=== PATIENT | female | born 1945 | race Caucasian/White ===

== ENCOUNTER 2018-11-06 10:04 | Day surgery (SDC) | payer OTHER ==
[~2018-11-06] VITALS: Ht 160 cm; Wt 64.3 kg
[2018-11-06] VITALS (12 sets, daily range): BP systolic 91–158; BP diastolic 62–85; PULSE 81–118; RESP 14–25; Ht 160 cm; Wt 64.3 kg
[2018-11-06] MEDS ORDERED: EPINEPHrine 1 MG INJ ONE (10:18)
[2018-11-06] MEDS ORDERED: SODIUM HYALURONATE 14 MG/ML SYG ONE (10:18)
[2018-11-06] MEDS ORDERED: LIDOCAINE 1%/EPI (1:100,000) (MDV) 20 ML ONE (10:18)
[2018-11-06] MEDS ORDERED: TOBRAMYCIN/DEXAMETH 3.5 GM OPH OINT ONE (10:18)
--- NOTE | 2018-11-06 10:22 | HPN ---
Date/Time of Note Date/Time of Note DATE: 11/06/18 TIME: 10:22 Interval H&P Admission Note Pt. seen H&P reviewed: No system changes UDAY BO Nov 06, 2018 10:22
[2018-11-06] MEDS ORDERED: TETRACAINE 0.5% 4 ML OPH LEFT EYE SCH (10:30)
[2018-11-06] MEDS ORDERED: MOXIFLOXACIN 0.5% 3 ML OPH OPER SCH (10:30)
[2018-11-06] MEDS ORDERED: TROPICAMIDE 1% 15 ML OPH OPER SCH (10:30)
[2018-11-06] MEDS ORDERED: LIDOCAINE 4% (MPF) 5 ML INJ OPER ONE (10:30)
[2018-11-06] MEDS ORDERED: ACETAZOLAMIDE 250 MG TAB PO ONE (10:30)
[2018-11-06] MEDS ORDERED: DICLOFENAC 0.1% 2.5 ML OPH OPER SCH (10:30)
[2018-11-06] MEDS ORDERED: PHENYLephrine 10% 5 ML OPH OPER SCH (10:30)
--- NOTE | 2018-11-06 10:53 | PREAC ---
Date/Time of Note Date/Time of Note DATE: 11/06/18 TIME: 10:50 Anesthesia Eval and Record Evaluation Time Pre-Procedure Interview DATE: 11/06/18 TIME: 10:50 Age 72 Sex female NPO: 8 hrs Preoperative diagnosis L eye cataract Planned procedure L cataract extraction w/ IOL Past Medical History Past Medical History: Includes (colitis, arthritis) GI: GERD Surgery & Anesthesia Issues No known issue Meds Anticoagulation: No Beta Jose within 24 hr: No Reason Beta Jose not given: Pt. not on B-Jose No Active Prescriptions or Reported Meds Current Medications Tetracaine HCl (Tetracaine 0.5% Steri-Unit Gayle) 1 drop NOTE LEFT EYE Last administered on 11/06/18at 10:28; Admin Dose 1 DROP; Start 11/06/18 at 10:30 Diclofenac Sodium (Voltaren 0.1%) 1 drop Q5 MIN X 3 OPER Last administered on 11/06/18at 10:28; Admin Dose 1 DROP; Start 11/06/18 at 10:30 Moxifloxacin HCl (Vigamox) 1 drop Q5 MIN X 3 OPER Last administered on 11/06/18at 10:28; Admin Dose 1 DROP; Start 11/06/18 at 10:30 Phenylephrine HCl (Ak-Dilate 10%) 1 drop Q5 MIN X 3 OPER Last administered on 11/06/18at 10:29; Admin Dose 1 DROP; Start 11/06/18 at 10:30 Tropicamide (Mydriacyl 1%) 1 drop Q5 MIN X3 OPER Last administered on 11/06/18at 10:29; Admin Dose 1 DROP; Start 11/06/18 at 10:30 Meds reviewed: Yes Allergies Coded Allergies: No Known Allergy (Unverified , 11/06/18) Allergies Reviewed: Yes Labs/Studies Labs Reviewed: Reviewed by anesthesiologist test: N/A Studies: ECG (SR, low qrs voltage, normal), CXR Pre-procedure Exam Last vitals Vital Signs Date Temp Pulse Resp B/P (MAP) Pulse Ox O2 O2 Flow FiO2 Time Delivery Rate 11/06/18 96.5 81 16 158/73 98 Room Air 10:13 (101) Airway: Adequate mouth opening, Adequate thyromental dist Mallampati: Mallampati II Teeth: Abnormal (multiple broken teeth, edentulous upper) Lung: Normal Heart: Normal ASA Physical Status ASA physical status: 2 Emergency: None Planned Anesthetic General/MAC: MAC Pre-operative Attestations Prior to commencing anesthesia and surgery, the patient was re-evaluated, there was verification of: *The patient's identity *The results of appropriate recent lab work and preoperative vital signs *The above evaluation not changing prior to induction *Anesthetic plan, risk benefits, alternative and complications discussed with patient/family; questions answered; patient/family understands, accepts and wishes to proceed. WM MENDEZ Nov 06, 2018 10:53
[2018-11-06] MEDS ORDERED: OXYCODONE/ACETAMINOPHEN (5/325) TAB PO PRN (11:00)
[2018-11-06] MEDS ORDERED: LABETALOL HCL 20MG INJ IV PRN (11:00)
[2018-11-06] MEDS ORDERED: ACETAMINOPHEN 500 MG TAB PO PRN (11:00)
[2018-11-06] MEDS ORDERED: hydrALAzine 20 MG INJ IV PRN (11:00)
[2018-11-06] MEDS ORDERED: TOBRAMYCIN/DEXAMETH 3.5 GM OPH OINT OPER ONE (11:00)
[2018-11-06] MEDS ORDERED: DIPHENHYDRAMINE 50 MG INJ IV PRN (11:00)
[2018-11-06] MEDS ORDERED: ONDANSETRON 4 MG INJ IV PRN (11:00)
[2018-11-06] MEDS ORDERED: ALBUTEROL 0.083% (NEB) 2.5 MG/3 ML AMP HHN PRN (11:00)
[2018-11-06] MEDS ORDERED: ACETAMINOPHEN 325 MG TAB PO PRN (11:00)
[2018-11-06] MEDS ORDERED: FENTAnyl 50 MCG/ML VIAL IV PRN (11:00)
[2018-11-06] MEDS ORDERED: SODIUM HYALURONATE 14 MG/ML SYG IO ONE (11:05)
[2018-11-06] MEDS ORDERED: FENTAnyl 50 MCG/ML VIAL ONE (11:17)
[2018-11-06] MEDS ORDERED: LIDOCAINE 2% (SDV) 5 ML INJ ONE (11:17)
[2018-11-06] MEDS ORDERED: DESFLURANE 15 MIN ONE (11:17)
[2018-11-06] MEDS ORDERED: ROCURONIUM 50 MG INJ ONE (11:17)
[2018-11-06] MEDS ORDERED: SUCCINYLCHOLINE CHLORIDE 100 MG/5 ML SYG IV ONE (11:17)
[2018-11-06] MEDS ORDERED: ETOMIDATE 20 MG INJ ONE (11:17)
[2018-11-06] MEDS ORDERED: MIDAZOLAM 1 MG/ML 2 ML INJ ONE (11:18)
[2018-11-06] MEDS ORDERED: LABETALOL HCL 20MG INJ ONE (11:26)
[2018-11-06] MEDS ORDERED: ONDANSETRON 4 MG INJ ONE (11:27)
[2018-11-06] MEDS ORDERED: FAMOTIDINE 20 MG INJ ONE (11:50)
[2018-11-06] MEDS ORDERED: SUGAMMADEX SODIUM 200 MG/2 ML VIAL IV ONE (11:50)
[2018-11-06] MEDS ORDERED: PHENYLephrine (100 MCG/ML) 10ML SYG ONE (11:54)
[2018-11-06] MEDS ORDERED: TOBRAMYCIN/DEXAMETH 3.5 GM OPH OINT LEFT EYE ONE (11:57)
--- NOTE | 2018-11-06 12:08 | OPR ---
Date/Time of Note Date/Time of Note DATE: 11/06/18 TIME: 12:01 Operative Report Free Text/Dictation Procedure Date: 11/06/2018 Pre-operative diagnosis: Visually significant cataract, LEFT eye Postoperative diagnosis: Visually significant cataract, left eye Procedure: Phacoemulsification with Intra-ocular lens placement, left eye Surgeon: Uday Bo MD Employment Counselor: none Anesthesia Type: General anesthesia Anesthesiologist: Dr. Dru Lozano Tourniquet Time: NA Estimated blood loss: None Transfusions: none Specimen: None Grafts/Implants: IOL: [id number] +23.00, serial [id number] Tubes/Drains: None Complications: None Pt Condition Post Procedure: stable Disposition: home Findings: opacified lens Indications for procedure: The patient is 72 year-old female with Visually significant cataract, who presented with blurred vision and difficulty reading and driving. There is no past medical history. Past surgical history is significant for ovary removal and hernia repair. The patient is not using any medication. The is no known allergy. There is no hist ory of glaucoma or any other hereditary ophthalmic disease in the family. Review of system is negative except for the blurred vision in the affected eye. VA in the operated eye 20/150, IOP 10 mmHg. Pupils are reactive with no RAPD. Slit lamp exam: cornea is clear, deep anterior chamber, 2+ cortical cataract, 3+ nuclear sclerosis cataract, there is no psudoexfoliation present at the pupillary margin or anterior lens capsule. On funds exam cup/disc ratio is 0.2, macula shows nor-mal foveal reflex, retina is attached. Risk, benefit and alternative to cataract surgery was explained to the patient, who agreed to proceed with the procedure. The informed consent was signed by the patient. Description of procedure: The patient was seen by me along with anesthesia team in the pre op area and the surgical site was marked and confirmed. Anesthetic drops along with dilating drops was instilled in surgical eye in the pre op. The patient was then brought back to the operating room placed in supine position. General anesthesia was performed by anesthesia doctor. The eye was prepped with Betadine 5% and draped in sterile manner for the ophthalmic surgery. An eyelid speculum was was placed to keep the eyelid open. Paracentesis wound was made superiorly and inferiorly though clear cornea near the limbus using 1.2mm side-port blade. The anterior chamber was inflated with viscoelastic (viscoat). A keratom blade was used to make a bi-planar, shelved, clear corneal incision, starting at temporal limbus and then tunnel-ing through clear cornea to enter the anterior chamber. A circular curvilinear continue capsulorrhexis was initiated by cystotom and continued with utrata forceps. The capsular flap then was removed. Hydrodissection and hydrodelineation was per-formed using BSS until the lens was freely rotatable. The lens nucleus was then removed using the phacoemulsification handpiece. The residual cortex was removed with the bimanual irrigation/aspiration handpieces. The capsular bag and anterior chamber were inflated with viscoelastic, and the IOL was inserted into the capsular bag. Using irrigation/Aspiration handpiece on the aspiration mode, Healon was removed from the anterior and posterior chamber. Main wound and paracentesis wound was hydrated by BSS. The speculum was removed. Vigamox drops and Sterile antibiotic/steroid ointment was applied to the eye. A cotton patch and clear shield were placed over the operative eye. The patient was transferred to the recovery room in stable condition. Uday Bo MD [id number] UDAY BO Nov 06, 2018 12:08
--- NOTE | 2018-11-06 12:17 | PAC ---
Date/Time of Note Date/Time of Note DATE: 11/06/18 TIME: 12:15 Post-Anesthesia Notes Post-Anesthesia Note Last documented vital signs Vital Signs Date Temp Pulse Resp B/P (MAP) Pulse Ox O2 O2 Flow FiO2 Time Delivery Rate 11/06/18 96.5 98 81 101 16 18 158/73 98 97 Room 10:13 120 (101) 137 Air RA Activity: WNL Respiratory function: WNL Cardiovascular function: WNL Mental status: Baseline Pain reasonably controlled: Yes Hydration appropriate: Yes Nausea/Vomiting absent: Yes WM MENDEZ Nov 06, 2018 12:17
== END 2018-11-06 16:25 | disposition home or self-care (01) ==
LOC: MERGE 10:04 → SDS 10:04
PROVIDERS: ATTEND Ophthalmology
DX: H26.8 Other specified cataract (principal)
CPT/HCPCS: 66984; J0171; J2250; J2370; J2405; J3010; Z7610; V2632

== ENCOUNTER 2018-12-04 07:24 | Day surgery (SDC) | payer OTHER ==
[2018-12-04] VITALS (14 sets, daily range): BP systolic 111–136; BP diastolic 61–83; PULSE 78–122; RESP 16–28; Ht 157.5 cm; Wt 64.8 kg
[~2018-12-04] VITALS: Ht 157.5 cm; Wt 64.8 kg
[~2018-12-04 07:24] MED LIST: DEXAMETHASONE 4 MG/ML 5 ML INJ ONE; LIDOCAINE 2% (SDV) 5 ML INJ ONE; METOCLOPRAMIDE 10 MG INJ ONE; SEVOFLURANE 15 MIN ONE
[2018-12-04] MEDS ORDERED: TETRACAINE 0.5% 4 ML OPH ONE (07:43)
[2018-12-04] MEDS ORDERED: CARBACHOL 0.01% 1.5 ML OPH INJ ONE (07:43)
[2018-12-04] MEDS ORDERED: EPINEPHrine 1 MG INJ ONE (07:43)
[2018-12-04] MEDS ORDERED: DEXAMETHASONE 4 MG/ML 1 ML INJ ONE (07:43)
[2018-12-04] MEDS ORDERED: MIDAZOLAM 1 MG/ML 2 ML INJ ONE (08:11)
[2018-12-04] MEDS ORDERED: ONDANSETRON 4 MG INJ ONE (08:13)
[2018-12-04] MEDS ORDERED: MOXIFLOXACIN 0.5% 3 ML OPH OPER SCH (08:30)
[2018-12-04] MEDS ORDERED: TROPICAMIDE 1% 15 ML OPH OPER SCH (08:30)
[2018-12-04] MEDS ORDERED: PHENYLephrine 10% 5 ML OPH OPER SCH (08:30)
[2018-12-04] MEDS ORDERED: DICLOFENAC 0.1% 2.5 ML OPH OPER SCH (08:30)
[2018-12-04] MEDS ORDERED: PRED5DRO20 RIGHT EYE (08:36)
[2018-12-04] MEDS ORDERED: DEXA5DRO11 RIGHT EYE (08:36)
[2018-12-04] MEDS ORDERED: KETO5DRO21 OPHTHALMIC (08:36)
[2018-12-04] MEDS ORDERED: CPR3OO3.5 RIGHT EYE (08:39)
[2018-12-04] MEDS ORDERED: PROPOFOL 20 ML ONE (08:51)
--- NOTE | 2018-12-04 08:59 | HPN ---
Date/Time of Note Date/Time of Note DATE: 12/04/18 TIME: 08:58 Interval H&P Admission Note Pt. seen H&P reviewed: Systems changes noted below UDAY BO Dec 04, 2018 08:59
--- NOTE | 2018-12-04 09:19 | PREAC ---
Date/Time of Note Date/Time of Note DATE: 12/04/18 TIME: 09:16 Anesthesia Eval and Record Evaluation Time Pre-Procedure Interview DATE: 12/04/18 TIME: 09:16 Age 72 Sex female NPO: 8 hrs Preoperative diagnosis R eye cataract Planned procedure R eye cataract excision w/ IOL Past Medical History Past Medical History: Includes Pulm: Asthma GI: GERD Psych: Depression, Anxiety, Other (claustrophobia) Surgery & Anesthesia Issues No known issue Meds Anticoagulation: No Beta Jose within 24 hr: No Reason Beta Jose not given: Pt. not on B-Jose Reported Medications Ciprofloxacin Opht* (Ciloxan*) 0.3%-3.5 Opht Oint, 1 APPLIC RIGHT EYE TID PRN for PT Taking SUSPENSION, EA 12/04/18 Prednisolone Acetate* (Pred Forte*) 5 Ml Susp, 1 DROP RIGHT EYE QID, EA 12/04/18 Ketorolac Tromethamine Oph (Ketorolac Tromethamine Oph) 0.5%-5 Ml Opht Drops, 1 DROP OPHTHALMIC Q6 Into R eye 12/04/18 Dexamethasone* Ophth (Dexamethasone* Ophth) 0.1%-5 Ml Drops, 1 DROP RIGHT EYE Q4, EA 12/04/18 Discontinued Reported Medications [None] No Conflict Check 05/11/15 Current Medications Tropicamide (Mydriacyl 1%) 1 drop Q5 MIN X3 OPER Last administered on 12/04/18at 08:27; Admin Dose 1 DROP; Start 12/04/18 at 08:30 Moxifloxacin HCl (Vigamox) 1 drop Q5 MIN X 3 OPER Last administered on at 08:27; Admin Dose 1 DROP; Start 12/04/18 at 08:30 Phenylephrine HCl (Ak-Dilate 10%) 1 drop Q5 MIN X 3 OPER Last administered on 12/04/18at 08:27; Admin Dose 1 DROP; Start 12/04/18 at 08:30 Diclofenac Sodium (Voltaren 0.1%) 1 drop Q5MIN X 3 OPER Last administered on 12/04/18at 08:28; Admin Dose 1 DROP; Start 12/04/18 at 08:30 Meds reviewed: Yes Allergies Coded Allergies: No Known Allergies (Verified Allergy, Unknown, 12/04/18) codeine (Verified Adverse Reaction, Severe, PAIN, 12/04/18) SEVERE NERVE PAIN Allergies Reviewed: Yes Labs/Studies Labs Reviewed: Reviewed by anesthesiologist test: Negative Pre-procedure Exam Last vitals Vital Signs Date Temp Pulse Resp B/P (MAP) Pulse Ox O2 O2 Flow FiO2 Time Delivery Rate 12/04/18 98.5 78 16 136/83 94 Room Air 08:54 (100) Airway: Adequate mouth opening, Adequate thyromental dist Mallampati: Mallampati III Teeth: Abnormal (dentures removed) Lung: Normal Heart: Normal ASA Physical Status ASA physical status: 3 Emergency: None Planned Anesthetic General/MAC: LMA Planned Pain Management Parenteral pain med Pre-operative Attestations Prior to commencing anesthesia and surgery, the patient was re-evaluated, there was verification of: *The patient's identity *The results of appropriate recent lab work and preoperative vital signs *The above evaluation not changing prior to induction *Anesthetic plan, risk benefits, alternative and complications discussed with patient/family; questions answered; patient/family understands, accepts and wishes to proceed. SANDRA CHRISTIANSEN MD Dec 04, 2018 09:19
[2018-12-04] MEDS ORDERED: KETOROLAC 30 MG INJ IV PRN (09:30)
[2018-12-04] MEDS ORDERED: LEVALBUTEROL (NEB) 1.25 MG/0.5 ML AMP HHN PRN (09:30)
[2018-12-04] MEDS ORDERED: MEPERIDINE 25 MG INJ IV PRN (09:30)
[2018-12-04] MEDS ORDERED: ONDANSETRON 4 MG INJ IV PRN (09:30)
[2018-12-04] MEDS ORDERED: MIDAZOLAM 1 MG/ML 2 ML INJ IV PRN (09:30)
[2018-12-04] MEDS ORDERED: LORAZEPAM 2 MG INJ IV PRN (09:30)
[2018-12-04] MEDS ORDERED: HYDROmorphONE 1 MG/5 ML IV SYRINGE IV PRN (09:30)
[2018-12-04] MEDS ORDERED: FENTAnyl 50 MCG/ML VIAL IV PRN ×2 (09:30)
[2018-12-04] MEDS ORDERED: DIPHENHYDRAMINE 50 MG INJ IV PRN (09:30)
--- NOTE | 2018-12-04 10:08 | OPR ---
Date/Time of Note Date/Time of Note DATE: 12/04/18 TIME: 10:01 Operative Report Free Text/Dictation Procedure Date: 12/04/2018 Pre-operative diagnosis: Visually significant cataract, right eye Postoperative diagnosis: Visually significant cataract, right eye Procedure: Phacoemulsification with Intra-ocular lens placement, right eye Surgeon: Uday Bo MD [place]: none Anesthesia Type: General anesthesia Anesthesiologist: Dr. Ellis Tourniquet Time: NA Estimated blood loss: None Transfusions: none Specimen: None Grafts/Implants: IOL: SN60WF, power +23.00, serial [id number] Tubes/Drains: None Complications: None Pt Condition Post Procedure: stable Disposition: home Findings: opacified lens Indications for procedure: The patient is 72 year-old female with Visually significant cataract, who presented with blurred vision and difficulty reading and driving. Past medical history is significant for asthma. Past surgical history is significant for cataract surgery left eye, hernia repair, ovary removal. The patient is using . The is no known allergy. There is no history of glaucoma or any other hereditary ophthalmic disease in the family. Review of sys-tem is negative except for the blurred vision in the affected eye. VA in the operated eye 20/100, IOP 7 mmHg. Pupils are reactive with no RAPD. Slit lamp exam: cornea is clear, deep anterior chamber, 2+ cortical cataract, 2+ nuclear sclerosis cataract, there is no psudoexfoliation present at the pupillary margin or anterior lens capsule. On funds exam cup/disc ratio is 0.2, macula shows normal foveal reflex, retina is attached. Risk, benefit and alternative to cataract surgery was explained to the patient, who agreed to proceed with the procedure. The informed consent was signed by the patient. Description of procedure: The patient was seen by me along with anesthesia team in the pre op area and the surgical site was marked and confirmed. Anesthetic drops along with dilating drops was instilled in surgical eye in the pre op. The patient was then brought back to the operating room placed in supine position. General anesthesia was performed by anesthesia team. The eye was prepped with Betadine 5% and draped in sterile manner for the ophthalmic surgery. An eyelid speculum was was placed to keep the eyelid open. Paracentesis wound was made superiorly and inferiorly though clear cornea near the limbus using 1.2mm side-port blade. The anterior chamber was inflated with viscoelastic (viscoat). A keratom blade was used to make a bi-planar, shelved, clear corneal incision, starting at temporal limbus and then tunnel-ing through clear cornea to enter the anterior chamber. A circular curvilinear continue capsulorrhexis was initiated by cystotom and continued with utrata forceps. The capsular flap then was removed. Hydrodissection and hydrodelineation was per-formed using BSS until the lens was freely rotatable. The lens nucleus was then removed using the phacoemulsification handpiece. The residual cortex was removed with the bimanual irrigation/aspiration handpieces. The capsular bag and anterior chamber were inflated with viscoelas-tic, and the IOL was inserted into the capsular bag. Using irrigation/Aspiration handpiece on the aspiration mode, Healon was removed from the anterior and posterior chamber. Main wound and paracentesis wound was hydrated by BSS. The speculum was removed. Vigamox drops and Sterile antibiotic/steroid ointment was applied to the eye. A cotton patch and clear shield were placed over the operative eye. The patient was transferred to the recovery room in stable condition. Uday Bo MD [id number] UDAY BO Dec 04, 2018 10:08
[2018-12-04] MEDS ORDERED: FENTAnyl 50 MCG/ML VIAL ONE (10:37)
--- NOTE | 2018-12-04 12:12 | PAC ---
Date/Time of Note Date/Time of Note DATE: 12/04/18 TIME: 12:12 Post-Anesthesia Notes Post-Anesthesia Note Last documented vital signs Vital Signs Date Temp Pulse Resp B/P (MAP) Pulse Ox O2 O2 Flow FiO2 Time Delivery Rate 12/04/18 97.7 111 18 123/77 95 Room Air 11:52 (92) 12/04/18 3.0 10:07 Activity: WNL Respiratory function: WNL Cardiovascular function: WNL Mental status: Baseline Pain reasonably controlled: Yes Hydration appropriate: Yes Nausea/Vomiting absent: Yes SANDRA CHRISTIANSEN MD Dec 04, 2018 12:12
== END 2018-12-04 11:28 | disposition home or self-care (01) ==
LOC: SDS 07:24
PROVIDERS: ATTEND Ophthalmology
DX: H25.11 Age-related nuclear cataract, right eye (principal); K21.9 Gastro-esophageal reflux disease without esophagitis; F41.8 Other specified anxiety disorders
CPT/HCPCS: 66984; J0171; J1100; J2250; J2405; J2765; J3010; V2632; Z7512; Z7610